=== PATIENT | male | born 1985 | race Caucasian/White ===

== ENCOUNTER 2021-02-17 15:07 | Emergency (ER) | payer MEDICARE, MEDICAID ==
[~2021-02-17] VITALS: Ht 180.3 cm; Wt 81.7 kg
[~2021-02-17 15:07] MED LIST: ALDACTONE25 MG PO; BACTRIM DS TAB1 EACH PO; CLONIDINE0.1 PO; DELSYM COU30 MG/5 M1 PO; EFFEXOR XR75 MG PO; HYDROCHLOROTHIA25 M2 PO; IMITREX20 MG NS; LISINOPRIL20 MG PO; NORCO 5-325 TA1 EAC1 PO; NORVASC10 MG PO; PROTONIX40 M1 PO; ZOFRAN ODT4 MG PO
[2021-02-17] MEDS ORDERED: LISINOPRIL20 MG PO (15:17)
[2021-02-17] MEDS ORDERED: XARELTO2.5 MG PO (15:17)
[2021-02-17 16:34] VITALS: BP 154/99
== END 2021-02-17 16:35 | disposition home or self-care (01) ==
LOC: M.ERS 15:07
DX: T78.40XS Allergy, unspecified, sequela (principal); I10 Essential (primary) hypertension; I25.2 Old myocardial infarction; Z88.0 Allergy status to penicillin; Z88.6 Allergy status to analgesic agent; Z88.5 Allergy status to narcotic agent; Z91.030 Bee allergy status; Z90.49 Acquired absence of other specified parts of digestive tract; Y92.89 Other specified places as the place of occurrence of the external cause

== ENCOUNTER 2021-04-10 23:15 | Emergency (ER) | payer OTHER, MEDICAID ==
[~2021-04-10] VITALS: Ht 182.9 cm; Wt 83.9 kg
[~2021-04-10 23:15] MED LIST changes: +XARELTO2.5 MG PO
[2021-04-10 23:30] LABS: ABSOLUTE BASOPHILS 0.1 thou/uL (0.0-0.2); ABSOLUTE EOSINOPHILS 0.1 thou/uL (0.0-0.7); ABSOLUTE LYMPHOCYTES 1.8 thou/uL (0.8-5.3); ABSOLUTE MONOCYTES 0.5 thou/uL (0.0-1.2); ABSOLUTE NEUTROPHILS 3.1 thou/uL (1.6-8.1); BASOPHILS 0.9 %; EOSINOPHILS 1.4 %; HEMATOCRIT 41.8 % (42.0-52.0); HEMOGLOBIN 14.1 gm/dL (14.0-18.0); LYMPHOCYTES 32.8 %; MCH 29.7 pg (26.0-34.0); MCHC 33.8 g/dL (28.0-37.0); MCV 87.8 fL (80.0-100.0); MONOCYTES 8.4 %; MPV 7.6 fl. (7.2-11.1); NUCLEATED RBCS 0 /100WBC; PLATELET COUNT* 159 thou/uL (150-400); POLYS 56.5 %; RBC 4.76 mil/uL (4.50-6.00); RDW-CV 13.8 % (10.5-14.5); WBC 5.6 thou/uL (4.0-11.0)
[2021-04-10 23:58] LABS: CALCIUM 9.2 mg/dL (8.5-10.1); CREATININE 1.1 mg/dL (0.6-1.3); POTASSIUM 3.5 mmol/L (3.5-5.1)
[2021-04-11 00:02] LABS: ALBUMIN 4.4 g/dL (3.4-5.0); TOTAL BILIRUBIN 0.4 mg/dL (<0.1-1.0); TOTAL PROTEIN 7.7 g/dL (6.4-8.2)
[2021-04-11 00:33] VITALS: BP 138/87
--- NOTE | 2021-04-11 10:14 | EKG ---
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
== END 2021-04-11 00:34 | disposition home or self-care (01) ==
LOC: M.ERS 23:15
PROVIDERS: Emergency Medicine
DX: R00.2 Palpitations (principal); I10 Essential (primary) hypertension; Z91.030 Bee allergy status; Z88.0 Allergy status to penicillin; Z88.6 Allergy status to analgesic agent; Z88.8 Allergy status to other drugs, medicaments and biological substances; Z88.5 Allergy status to narcotic agent